=== PATIENT | female | born 1955 | race Caucasian/White ===

== ENCOUNTER 2019-01-16 17:18 | Emergency (ER) | payer MEDICAID ==
[2019-01-16] MEDS ORDERED: METHYLPREDNISOLONE INJ 125 MG/2 ML SDV IV ONE (18:41)
[2019-01-16] MEDS ORDERED: FAMOTIDINE INJ/PF 20 MG/2 ML SDV IV ONE (18:41)
[2019-01-16] MEDS ORDERED: DIPHENHYDRAMINE HCL 50 MG/ML VIAL IV ONE (18:41)
--- NOTE | 2019-01-16 18:48 | ER Document Report ---
ED Medical Screen (RME) - General Chief Complaint: Facial Swelling Stated Complaint: FACIAL NUMBNESS/SWELLING Time Seen by Provider: 01/16/19 18:32 - HPI Notes: 01/16/19 18:42 Patient is a 63-year-old female with a previous history of CVA with right-sided residual, GERD, hypertension who presents complaining of left lower lip swelling, tingling of her face bilaterally, and scratchy throat over the past hour and 45 minutes. Patient states that they were walking into a restaurant when her symptoms started. Patient states that even the smell of shellfish can make her have an allergic reaction. Patient states that the throat tingling has since improved. She is on lisinopril. Patient states that she is about to finish Augmentin for a sinus infection, but has had Augmentin in the past without any problems. Denies FLORES, fever, neck pain, URI, CP, SOB, Abd pain, dysuria, back pain, or rash. I have treated and performed a rapid initial assessment of this patient. A comprehensive ED assessment and evaluation of the patient, analysis of test results and completion of medical decision making process will be conducted by additional ED providers. PHYSICAL EXAMINATION: GENERAL: Well-appearing, well-nourished and in no acute distress. A&Ox4. Answers questions appropriately. Moves comfortably w/o notable distress HEAD: Atraumatic, normocephalic. EYES: Pupils equal round and reactive to light, extraocular movements intact, sclera anicteric, conjunctiva are normal. ENT: Nares patent and without discharge. oropharynx w/o erythema or exudates. 1+ tonsilar hypertrophy without erythema no exudate. No palatine shift. Uvula midline. No tongue protrusion. No drooling, hoarseness, or obvious airway compromise. Moist mucous membranes. No sinus tenderness. + mild swelling left lower lip. No obvious gross swelling to the tongue. NECK: Normal range of motion, supple without lymphadenopathy. No rigidity/meningismus. LUNGS: Breath sounds clear to auscultation bilaterally and equal. No wheezes rales or rhonchi. No retractions HEART: Regular rate and rhythm without murmurs, rubs, gallops. NEUROLOGICAL: Normal speech, normal gait. Cranial nerves grossly intact. Strength equal bilaterally 5+/5. GCS 15, NIH 0. PSYCH: Normal mood, normal affect. SKIN: Warm, Dry, normal turgor, no rashes or lesions noted. - Related Data Allergies/Adverse Reactions: clindamycin Allergy (Verified 01/16/19 17:23) promethazine [From Phenergan] Allergy (Verified 01/16/19 17:23) shellfish derived Allergy (Verified 01/16/19 17:23) Physical Exam - Vital signs Vitals: Temp Pulse Resp BP Pulse Ox 98.4 F 99 20 147/65 H 96 01/16/19 17:32 01/16/19 17:32 01/16/19 17:32 01/16/19 17:32 01/16/19 17:32 Course - Vital Signs Vital signs: Temp Pulse Resp BP Pulse Ox 98.4 F 99 20 147/65 H 96 01/16/19 17:32 01/16/19 17:32 01/16/19 17:32 01/16/19 17:32 01/16/19 17:32
--- NOTE | 2019-01-16 19:07 | RADIOLOGY REPORT (SQ) ---
EXAM DESCRIPTION: CHEST 2 VIEWS COMPLETED DATE/TIME: 01/16/2019 6:54 pm REASON FOR STUDY: chest tightness COMPARISON: None. EXAM PARAMETERS: NUMBER OF VIEWS: two views TECHNIQUE: Digital Frontal and Lateral radiographic views of the chest acquired. RADIATION DOSE: NA LIMITATIONS: none FINDINGS: LUNGS AND PLEURA: No opacities, masses or pneumothorax. No pleural effusion. MEDIASTINUM AND HILAR STRUCTURES: No masses or contour abnormalities. HEART AND VASCULAR STRUCTURES: Heart normal size. No evidence for failure. BONES: No acute findings. HARDWARE: None in the chest. OTHER: No other significant finding. IMPRESSION: NO ACUTE RADIOGRAPHIC FINDING IN THE CHEST. TECHNICAL DOCUMENTATION: JOB ID: [id number] [email or web address]- All Rights Reserved Reading location - IP/workstation name: [email or web address]
[2019-01-16] MEDS ORDERED: METHYLPREDNISOLONE INJ 125 MG/2 ML SDV ONE (21:54)
[2019-01-17 00:53] VITALS: BP 132/75
--- NOTE | 2019-01-17 00:55 | ER Document Report ---
ED General - General Chief Complaint: Facial Swelling Stated Complaint: FACIAL NUMBNESS/SWELLING Time Seen by Provider: 01/16/19 18:32 - HPI Patient complains to provider of: Lower lip swelling Notes: Now resolved symptoms of lower lip swelling. Patient was walking to a restaurant felt her lip felt strange. Family looked at her and felt profound lower lip swelling. My evaluation is now 7 hours and the patient is awake. She has no symptoms at this time has completely resolved. Patient does take daily lisinopril has been taking it for years. Discussed case with previous provider saw the patient. Does appear that this was angioedema that is now resolved after 7 hours of observation in our emergency department. - Related Data Allergies/Adverse Reactions: clindamycin Allergy (Verified 01/16/19 17:23) promethazine [From Phenergan] Allergy (Verified 01/16/19 17:23) shellfish derived Allergy (Verified 01/16/19 17:23) Past Medical History - Social History Smoking Status: Unknown if Ever Smoked Chew tobacco use (# tins/day): No Frequency of alcohol use: None Drug Abuse: None Family History: None Patient has suicidal ideation: No Patient has homicidal ideation: No - Past Medical History Cardiac Medical History: Reports: Hx Hypertension Renal/ Medical History: Denies: Hx Peritoneal Dialysis GI Medical History: Reports: Hx Gastroesophageal Reflux Disease Review of Systems - Review of Systems Notes: REVIEW OF SYSTEMS: CONSTITUTIONAL: -fevers, -chills EENT: -eye pain, -difficulty swallowing, -nasal congestion CARDIOVASCULAR: -chest pain, -syncope. RESPIRATORY: -cough, -SOB GASTROINTESTINAL: -abdominal pain, -nausea, -vomiting, -diarrhea GENITOURINARY: -dysuria, -hematuria MUSCULOSKELETAL: -back pain, -neck pain SKIN: -rash or skin lesions. HEMATOLOGIC: -easy bruising or bleeding. LYMPHATIC: -swollen, enlarged glands. NEUROLOGICAL: -altered mental status or loss of consciousness, -headache, - neurologic symptoms PSYCHIATRIC: -anxiety, -depression. ALL OTHER SYSTEMS REVIEWED AND NEGATIVE. Physical Exam - Vital signs Vitals: Temp Pulse Resp BP Pulse Ox 98.4 F 99 20 147/65 H 96 01/16/19 17:32 01/16/19 17:32 01/16/19 17:32 01/16/19 17:32 01/16/19 17:32 - Notes Notes: PHYSICAL EXAMINATION: GENERAL: Well-appearing, well-nourished and in no acute distress. HEAD: Atraumatic, normocephalic. EYES: Pupils equal round and reactive to light, extraocular movements intact, sclera anicteric, conjunctiva are normal. ENT: nares patent, oropharynx clear without exudates. Moist mucous membranes. NECK: Normal range of motion, supple without lymphadenopathy LUNGS: Breath sounds clear to auscultation bilaterally and equal. No wheezes rales or rhonchi. HEART: Regular rate and rhythm without murmurs ABDOMEN: Soft, nontender, normoactive bowel sounds. No guarding, no rebound. No masses appreciated. EXTREMITIES: Normal range of motion, no pitting or edema. No cyanosis. NEUROLOGICAL: Cranial nerves grossly intact. Normal speech, normal gait. Normal sensory and motor exams. PSYCH: Normal mood, normal affect. SKIN: Warm, Dry, normal turgor, no rashes or lesions noted. Course - Re-evaluation Re-evalutation: 01/17/19 00:55 Well-appearing 63-year-old female now presents with resolved symptoms of presumed angioedema in the setting of lisinopril. Have lengthy conversation with family she will be done with lisinopril for the rest of her life. She has no symptoms no exposure to allergens. Denies any difficulty breathing or symptoms no nausea or vomiting. Reassuring physical exam stable vital signs within normal limits neurologically intact. Patient be discharged home improved follow-up with PCP given strict return precautions anything should change please return - Vital Signs Vital signs: Temp Pulse Resp BP Pulse Ox 98.4 F 99 20 147/65 H 96 01/16/19 17:32 01/16/19 17:32 01/16/19 17:32 01/16/19 17:32 01/16/19 17:32 Discharge - Discharge Clinical Impression: Angioedema Qualifiers: Encounter type: initial encounter Qualified Code(s): T78.3XXA - Angioneurotic edema, initial encounter Condition: Stable Disposition: HOME, SELF-CARE Instructions: Angioedema ([facility]) Additional Instructions: See your PCP
--- NOTE | 2019-01-17 08:37 | EKG REPORT ---
SEVERITY:- ABNORMAL ECG - SINUS RHYTHM NONSPECIFIC T ABNORMALITIES, LATERAL LEADS : Confirmed by: Chavo Mancera MD 17-Jan-2019 08:35:53
== END 2019-01-17 01:05 | disposition home or self-care (01) ==
LOC: ER 17:18
DX: T78.3XXA Angioneurotic edema, initial encounter (principal); R22.0 Localized swelling, mass and lump, head; Z79.899 Other long term (current) drug therapy; I10 Essential (primary) hypertension
CPT/HCPCS: 71046; 93005; 93010; 99283